=== PATIENT | female | born 1995 | race Caucasian/White ===

== ENCOUNTER 2019-07-21 13:37 | Emergency (ER) | payer SELFPAY ==
[~2019-07-21] VITALS: Ht 167.6 cm; Wt 90.7 kg
[~2019-07-21 13:37] MED LIST: CEPHALEXIN500 M1 PO; FLEXERIL5 MG PO; HYDROCODONE BIT1 T11 PO; MOTRIN600 MG PO; NAPROSYN500 MG PO; NKHM; ZOFRAN ODT4 MG SL
== END 2019-07-21 15:07 | disposition home or self-care (01) ==
LOC: ED 13:37
DX: M79.672 Pain in left foot (principal); M25.562 Pain in left knee; F17.200 Nicotine dependence, unspecified, uncomplicated; Z79.2 Long term (current) use of antibiotics; Z79.899 Other long term (current) drug therapy

== ENCOUNTER 2020-08-11 02:47 | Emergency (ER) | payer OTHER ==
[~2020-08-11] VITALS: Ht 165.1 cm; Wt 108.0 kg
[2020-08-11 03:03] LABS: BASO # 0.1 10*3/uL (0.0-0.1); BASO % 0.5 % (0.0-1.0); EOS # 0.1 10*3/uL (0.0-0.4); EOS % 0.5 % (1.0-4.0); HEMATOCRIT 44.6 % (37.0-47.0); LYMPH % 31.9 % (27.0-41.0); MEAN CELL VOLUME 86.9 fl (81.0-99.0); MEAN CORPUSCULAR HGB 27.9 pg (27.0-31.0); MEAN CORPUSCULAR HGB CONC 32.1 g/dl (33.0-37.0); MEAN PLATELET VOLUME 8.9 fl (9.6-12.3); MONO # 1.4 10*3/uL (0.1-1.0); MONO % 8.8 % (3.0-9.0); NEUT # 8.9 10*3/uL (2.3-7.9); NEUT % 57.5 % (47.0-73.0); PLATELET COUNT AUTOMATED 448 10*3/uL (130-400); RED BLOOD COUNT 5.13 10*6/uL (4.10-5.10); RED CELL DISTRI WIDTH 13.8 % (0-14.5); WHITE BLOOD COUNT 15.5 10*3/uL (4.8-10.8)
[2020-08-11] MEDS ORDERED: ROBAXIN-750750 MG PO (05:36)
[2020-08-11] MEDS ORDERED: NAPROSYN500 MG PO (05:36)
== END 2020-08-11 05:46 | disposition home or self-care (01) ==
LOC: ED 02:47
PROVIDERS: Internal Medicine
DX: S01.511A Laceration without foreign body of lip, initial encounter (principal); F10.10 Alcohol abuse, uncomplicated; Z79.899 Other long term (current) drug therapy; V89.2XXA Person injured in unspecified motor-vehicle accident, traffic, initial encounter; Y93.89 Activity, other specified; Y92.89 Other specified places as the place of occurrence of the external cause; Y99.8 Other external cause status; Y90.9 Presence of alcohol in blood, level not specified